=== PATIENT | female | born 1960 | race Asian ===

== ENCOUNTER 2023-07-31 16:27 | Emergency (ER) | payer OTHER ==
[2023-07-31 16:37] VITALS: RESP 18; BMI 23.6
[2023-07-31] MEDS: morphine CARPU-JECT 2 MG/1 ML DISP.SYRIN IVPUSH ONE (18:03)
[2023-07-31 18:13] LABS: INR 0.92 (0.83-1.09); PROTHROMBIN TIME (PATIENT) 10.7 SEC (9.7-13.0)
[2023-07-31 18:16] LABS: ACTIVATED PTT 25.9 SECONDS (25.2-36.5)
[2023-07-31 19:16] LABS: POTASSIUM 4.4 mmol/L (3.5-5.1)
[2023-07-31 19:17] LABS: ALBUMIN 3.6 g/dl (3.4-5.0); BLOOD UREA NITROGEN 14.6 mg/dL (7-18); CALCIUM 9.5 mg/dL (8.5-10.1)
[2023-07-31 19:21] LABS: CREATININE 0.8 mg/dL (0.55-1.3)
[2023-07-31 19:23] LABS: BILIRUBIN,TOTAL 0.7 mg/dL (0.2-1); TOT PROT 7.3 g/dl (6.4-8.2)
[2023-07-31 19:49] LABS: BASO % 0.2 % (0-2.0); EOS % 0.2 % (0-4.5); HEMATOCRIT 38.6 % (32.4-45.2); HEMOGLOBIN 13.2 GM/dL (10.7-15.3); LYMPH % 13.1 % (8-40); MCH 31.6 pg (25.7-33.7); MCHC 34.1 g/dl (32.0-36.0); MEAN CELL VOLUME 92.6 fl (80-96); MEAN PLT VOLUME 6.9 fl (7.5-11.1); MONO % 4.7 % (3.8-10.2); NEUT % 81.8 % (42.8-82.8); PLATELET COUNT 312 10^3/uL (134-434); RBC 4.17 M/mm3 (3.60-5.2); RDW 13.7 % (11.6-15.6); WHITE BLOOD COUNT 10.7 K/mm3 (4.0-10.0)
[2023-07-31 22:18] VITALS: BP 146/78; PULSE 92; TEMP 98.2
[2023-07-31] MEDS ORDERED: ACETAMINOPHEN 325 MG TABLET (FP) ONE (22:25)
[2023-07-31] MEDS: ACETAMINOPHEN 325 MG TABLET (FP) PO ONE (22:37)
== END 2023-07-31 23:01 | disposition home or self-care (01) ==
LOC: JER 16:27
PROC: 2W3MX1Z Immobilization of Left Lower Extremity using Splint (ICD-10-PCS; principal; 2023-07-31)
PROC: 3E030GC Introduction of Other Therapeutic Substance into Peripheral Vein, Open Approach (ICD-10-PCS; 2023-07-31)
DX: S52.022A Displaced fracture of olecranon process without intraarticular extension of left ulna, initial encounter for closed fracture (principal); S80.212A Abrasion, left knee, initial encounter; M79.645 Pain in left finger(s); W01.198A Fall on same level from slipping, tripping and stumbling with subsequent striking against other object, initial encounter
CPT/HCPCS: 36415; 70450-TC; 72125-TC; 73070-TC-LT-FY; 73110-TC-LT-FY; 73130-TC-LT-FY; 73562-TC-LT-FY; 73562-TC-RT-FY; 80053; 82962; 85025; 85610; 85730; 86850; 86900; 86901; 99285-25